=== PATIENT | male | born 1995 | race Caucasian/White ===

== ENCOUNTER 2022-03-14 02:41 | Emergency (ER) | payer BC ==
[~2022-03-14] VITALS: Ht 175.3 cm; Wt 72.6 kg
--- NOTE | 2022-03-14 03:40 | NUR ---
BIBS FOR C/O N/V AND ABDOMINAL PAIN X 24 HOURS. - DIARRHEA, DYSURIA OR HEMATURIA. PATIENT IS AAOX4. ABLE TO MAKE NEEDS KNOWN. PLACED COMFORTABLY IN BED. VITALS CHECKED.
[2022-03-14] MEDS ORDERED: ONDANSETRON HCL/PF 4 MG/2 ML VIAL IVP ONE (04:00)
[2022-03-14] MEDS ORDERED: IV NS 0.9% 1,000 ML BAG IV ONE (04:00)
[2022-03-14] MEDS ORDERED: ONDANSETRON HCL/PF 4 MG/2 ML VIAL ONE (04:05)
--- NOTE | 2022-03-14 04:12 | NUR ---
IV CANNULA G18 INSERTED ON LEFT AC. BLOOD DRAWN AND SENT TO LAB
[2022-03-14 04:45] LABS: BASOPHILS % (AUTO) 0.2 % (0.0-2.0); EOSINOPHILS % (AUTO) 0.3 % (0.0-6.0); HEMATOCRIT 43 % (39-51); HEMOGLOBIN 14.8 g/dL (13.5-17.5); LYMPHOCYTES # (AUTO) 0.5 K/uL (0.8-4.8); LYMPHOCYTES % (AUTO) 6.1 % (20.0-44.0); MEAN CORPUSCULAR HGB CONC 34 g/dl (31.0-36.0); MEAN CORPUSCULAR VOLUME 82 fL (80-96); MONOCYTES # (AUTO) 0.5 K/uL (0.1-1.30); MONOCYTES % (AUTO) 6.2 % (2.0-12.0); NEUTROPHILS # (AUTO) 7.1 K/uL (1.8-8.9); NEUTROPHILS % (AUTO) 87.2 % (43.0-81.0); PLATELET COUNT (AUTO) 199 K/uL (150-450); RED BLOOD CELL COUNT(AUTO) 5.29 MIL/uL (4.5-6.0); WHITE BLOOD COUNT (AUTO) 8.2 K/uL (4.3-11.0)
[2022-03-14 04:55] LABS: CALCIUM, SERUM 9.2 mg/dL (8.5-10.1); POTASSIUM 4.3 mmol/L (3.5-5.1)
[2022-03-14 05:09] LABS: ALBUMIN 4.2 g/dL (3.4-5.0); BILIRUBIN,DIRECT 0.2 mg/dL (0.0-0.2); BILIRUBIN,TOTAL 0.9 mg/dL (0.2-1.0); TOTAL PROTEIN, SERUM 7.7 g/dL (6.4-8.2)
[2022-03-14] MEDS ORDERED: ONDA4TAB5 PO (05:09)
--- NOTE | 2022-03-14 05:16 | NUR ---
IV CANNULA REMOVED.
[2022-03-14 05:17] VITALS: BP 138/80
--- NOTE | 2022-03-14 05:17 | NUR ---
Patient discharged to home in stable condition. Written and verbal after care instructions given. Patient verbalizes understanding of instruction.
== END 2022-03-14 05:20 | disposition home or self-care (01) ==
LOC: ER 02:44
DX: R11.2 Nausea with vomiting, unspecified (principal); Z79.899 Other long term (current) drug therapy
CPT/HCPCS: 99283; 96374; 85025; 80048; 83690; 80076; 36415; J2405; J7030